=== PATIENT | male | born 1950 | race Two or more races ===

== ENCOUNTER 2022-03-14 21:54 | Inpatient (IN) | payer MEDICARE ==
[~2022-03-14] VITALS: Ht 193 cm; Wt 69.4 kg
--- NOTE | 2022-03-14 22:15 | NUR ---
GPS-ROLLER CHECKER NOTES: ADMITTED A 71-Y/O, MALE, FROM [facility]. ADMITTED ON A 5150 FOR GD. PER HOLD, PATIENT'S HOME WAS IN DISARRAY, AND HE WAS MALNOURISHED AND REFUSING FOOD AND MEDICATION. PT IS UNABLE TO CARE FOR HIMSELF. UPON FACE TO FACE EVALUATION, PT IS A/OX3, APPEARS DEPRESSED, ANXIOUS, HYPERVERBAL, PARANOID AND DELUSIONAL. PT STATED "I CAN'T STOP TALKING FOR OVER A YEAR". DENIES SI/HI/AVH AT THIS TIME. PATIENT REFUSED TO SIGN ALL ADMISSION PAPER WORKS. PT STATED "I HAVE SEVERE ANXIETY". SKIN ASSESSMENT DONE. WOUND CARE ORDERED. BELONGINGS WERE INVENTORIED AND CHECKED FOR CONTRABAND. PT IS UNDER THE PSYCHIATRIC CARE OF DR. YEUNG AND MEDICAL CARE OF [facility]. BED IN LOW LOCKED POSITION. SAFETY PRECAUTIONS MAINTAINED. WILL CONTINUE TO MONITOR Q15 MINS FOR MOOD, SAFETY AND BEHAVIOR. NO FAMILY TO NOTIFY REGARDING PT'S ADMISSION.
[2022-03-14 23:00] VITALS: BP 121/78
[2022-03-14] MEDS ORDERED: MAG HYDROX/AL HYDROX/SIMETH 30 ML UDC PO PRN (23:00)
[2022-03-14] MEDS ORDERED: LORAZEPAM 0.5 MG TABLET PO PRN (23:00)
[2022-03-14] MEDS ORDERED: BLOOD SUGAR DIAGNOSTIC 1 EACH STRIP IN ONE (23:00)
[2022-03-14] MEDS ORDERED: MAGNESIUM HYDROXIDE 30 ML UDC PO PRN (23:00)
[2022-03-14] MEDS ORDERED: TEMAZEPAM 7.5 MG CAPSULE PO PRN (23:00)
[2022-03-14] MEDS ORDERED: ACETAMINOPHEN 325 MG TABLET PO PRN (23:00)
[2022-03-15] MEDS ORDERED: APIX5TAB PO (00:01)
[2022-03-15] MEDS ORDERED: METO-357 PO (00:01)
[2022-03-15] MEDS ORDERED: CLON0.5T PO ×2 (03:49)
[2022-03-15] MEDS ORDERED: ESCI5TAB PO (03:49)
[2022-03-15] MEDS ORDERED: MELA5TAB PO (03:49)
[2022-03-15] MEDS ORDERED: BUPR-96 PO (03:49)
--- NOTE | 2022-03-15 07:20 | NUR ---
WOUND CARE CONSULT: PT PRESENTS WITH RT HIP ABRASION, LEFT HIP BLANCHABLE REDNESS AND RT BUTTOCK PINK/RED AREA, PRESENT ON ADMISSION. PT IS AMBULATORY AND CONTINENT AT THIS TIME. RECOMMENDATIONS MADE FOR SKIN PROTECTION AND WOUND CARE. DISCUSSED WITH NURSING STAFF. MD IN AGREEMENT WITH PLAN OF CARE.
[2022-03-15 07:30] LABS: CHOLESTEROL 188 mg/dL (<200); HDL CHOLESTEROL 39 mg/dL (40-60); LDL 132 mg/dL (0-99); TRIGLYCERIDES 85 mg/dL (30-150)
[2022-03-15 08:00] VITALS: BP 116/69
[2022-03-15 08:26] LABS: CREATININE 1.1 mg/dL (0.6-1.3)
[2022-03-15] MEDS: METOPROLOL SUCCINATE 50 MG TAB.SR.24H PO SCH (08:48)
[2022-03-15] MEDS: APIXABAN 5 MG TABLET PO SCH ×2 (08:49→21:42)
[2022-03-15] MEDS: NEOMY SULF/BACITRAC ZN/POLY 15 GM TUBE TP SCH (08:51)
--- NOTE | 2022-03-15 09:18 | NUR ---
ISAC Clinical Note: Pt placed on a 5150 hold for GD. Hold states that pt was not taking medications and was malnourished. Per hold, it states that pt resides at [address] [place] [id number]; ([phone]). However, pt was unable to identify this information. Pt stated that he is "homeless". SW attempted to contact Aime friend ([phone]) and number did not exist. SW attempted to contact next of kin Bisi ([phone]) and was unable to reach.
--- NOTE | 2022-03-15 09:18 | NUR ---
ISAC Initial Discharge: Per hold, it states that pt resides at [address] [place] [id number]; ([phone]). However, pt was unable to identify this information. Pt stated that he is "homeless". SW attempted to contact Aime friend ([phone]) and number did not exist. SW attempted to contact next of kin Bisi ([phone]) and was unable to reach. ISAC will work with the MD and pt to help coordinate appropriate discharge.
--- NOTE | 2022-03-15 09:20 | NUR ---
ISAC Family Contact: SW attempted to contact Aime friend ([phone]) and number did not exist. SW attempted to contact next of kin Bisi ([phone]) and was unable to reach and left a voicemail.
--- NOTE | 2022-03-15 09:22 | NUR ---
Treatment Plan: Pt refused to sign treatment plan and was paranoid.
[2022-03-15] MEDS: ESCITALOPRAM OXALATE (10 MG) 10 MG TABLET PO SCH (09:56)
[2022-03-15 16:00] VITALS: BP 103/51
[2022-03-15] MEDS: busPIRone 5 MG TABLET PO SCH (21:41)
[2022-03-15] MEDS: ATORVASTATIN 10 MG TABLET PO SCH (21:43)
--- NOTE | 2022-03-16 07:30 | NUR ---
GPS RN OPENING NOTES RECEIVED PATIENT RESTING IN BED, EASILY AWAKE TO STIMULI. AWAKE, A/O X1, ABLE TO VERBALIZED NEEDS. DENIES ANY PAIN AT THIS TIME.NO SIGNS OF SOB OR CARDIAC DISTRESS NOTED. PATIENT NOTED WITH EPISODES OF CONFUSIONS AND FORGETFULNESS. NEED FREQUENT REORIENTATION. SAFETY MEASURES MAINTAINED: BED IN LOWEST AND LOCKED POSITION, SIDE RAILS UP, WILL CONTINUE TO MONITOR FOR ANY CHANGES IN BEHAVIOR.
[2022-03-16 08:00] VITALS: BP 114/68
[2022-03-16] MEDS: ESCITALOPRAM OXALATE (10 MG) 10 MG TABLET PO SCH (08:19)
[2022-03-16] MEDS: METOPROLOL SUCCINATE 50 MG TAB.SR.24H PO SCH (08:19)
--- NOTE | 2022-03-16 08:19 | NUR ---
SNF Referral: SW sent clinicals to Nicholas anguiano from [facility] ([phone]) for placement option. SW sent H & P, progress notes, and medication list.
[2022-03-16] MEDS: APIXABAN 5 MG TABLET PO SCH ×2 (08:20→21:00)
[2022-03-16] MEDS ORDERED: clonazePAM 0.5 MG TABLET PO PRN (08:30)
--- NOTE | 2022-03-16 09:16 | NUR ---
SW Friend Contact: SW received a call from Bisi ([phone]) who stated that pt does not have any supportive contact. She stated that she is pt's [facility] friend. She shared pt has two friends only: Bisi and Aime. Bisi stated that pt does not have a condo at this time and his condo is up for rent. She reported that pt was residing at her mothers house and taking care of her mother. SW explained treatment/discharge plan and that the doctor recommends a nursing facility. She was agreeable of this.
--- NOTE | 2022-03-16 09:39 | NUR ---
SNF Contact: SW spoke with Nicholas anguiano from [facility] ([phone]) who stated pt is accepted.
[2022-03-16] MEDS: NEOMY SULF/BACITRAC ZN/POLY 15 GM TUBE TP SCH (10:31)
--- NOTE | 2022-03-16 14:24 | NUR ---
Friend Contact: ISAC received a call from patient's friend Aime ([phone]) who stated that he is the DPOA but then stated he is unsure if he is the DPOA. He shared information that his condo will be going in forecsure and would want to assist pt. ISAC did share that friend Bisi stated that pt was living at her mothers house (). ISAC did explain recommendation is for pt to go to a nursing facility. Addendum: 03/17/22 at 1301 by ISAC MCGHEE Aime did report that he will be going to vacation for two weeks and will be unable to help until back.
[2022-03-16 16:00] VITALS: BP 110/56
[2022-03-16] MEDS: clonazePAM 0.5 MG TABLET PO PRN (18:14)
--- NOTE | 2022-03-16 18:50 | NUR ---
GPS RN CLOSING NOTES: PATIENT IN BED ASLEEP IN BED, A/OX2. PATIENT REMAINED CALM IN THE SHIFT, NOTED WITH EPISODES OF ECHOLALIA.NO SOB OR CARDIAC DISTRESS NOTED, ON ROOM AIR AND TOLERATING WELL. SAFETY MEASURES MAINTAINED: BED LOCKED AND IN LOWEST POSITION, SIDE RAILS UP X 2. CALL LIGHT IN EASY REACH FOR ASSISTANCE. ENDORSED TO SEISMOGRAPH OBSERVER FOR DADA.
[2022-03-16 20:00] VITALS: BP 108/71
[2022-03-16] MEDS: ATORVASTATIN 10 MG TABLET PO SCH ×3 (21:34→21:47)
[2022-03-16] MEDS: busPIRone 5 MG TABLET PO SCH (21:34)
[2022-03-17 08:00] VITALS: BP 131/76
[2022-03-17] MEDS: ESCITALOPRAM OXALATE (10 MG) 10 MG TABLET PO SCH (08:40)
[2022-03-17] MEDS: METOPROLOL SUCCINATE 50 MG TAB.SR.24H PO SCH (08:41)
[2022-03-17] MEDS: APIXABAN 5 MG TABLET PO SCH ×2 (08:41→21:22)
[2022-03-17] MEDS: NEOMY SULF/BACITRAC ZN/POLY 15 GM TUBE TP SCH (08:47)
[2022-03-17] MEDS: clonazePAM 0.5 MG TABLET PO PRN ×2 (08:53→20:15)
--- NOTE | 2022-03-17 08:55 | NUR ---
RN-NOTES PATIENT C/O OF ANXIETY AND REQUESTING FOR MEDICATION, KLONOPIN 0.5MG P.O GIVEN PRN ORDER. WILL CONT. MONITORING FOR SAFETY AND BEHAVIOR.
--- NOTE | 2022-03-17 09:55 | NUR ---
RN-NOTES PATIENT LYING IN BED AWAKE,ALERT CALM,NO ACUTE DISTRESS NOTED.
--- NOTE | 2022-03-17 13:22 | NUR ---
Friend Contact: SW received a call from patient's friend Aime ([phone]) stating that he might be the DPOA and is continuing to look for the paperwork. He stated pt has an real estate broker associate who is trying to help to help pt with his condo situation.
[2022-03-17 16:00] VITALS: BP_SYST 100; BP_SYST 132; BP_DIAS 50; BP_DIAS 75
--- NOTE | 2022-03-17 20:22 | NUR ---
Pt awake , alert and oriented x 3 , currently laying in his bed. Pt requested for Klonopin 0.5 mg PRN for Anxiety- PRN given as ordered and per pt's request. Will cont to monitor and anticipate needs.
[2022-03-17 20:40] VITALS: BP 106/65
[2022-03-17] MEDS: ATORVASTATIN 10 MG TABLET PO SCH (21:23)
[2022-03-17] MEDS: busPIRone 5 MG TABLET PO SCH (21:23)
--- NOTE | 2022-03-17 23:53 | NUR ---
Pt sleeping at this time, no s/sx of acute distress noted, easy to arouse. Cont to monitor and anticipate needs and safety.
--- NOTE | 2022-03-18 07:00 | NUR ---
GPS RN OPENING NOTES PATIENT LAYING IN BED, A/O X 2, ANXIOUS, WITH NO COMPLAINTS OF PAIN OR DISCOMFORT. NO S/S RESPIRATORY DISTRESS. SAFETY MEASURES IN PLACE: BED IN LOWEST LOCKED POSITION, SIDE RAILS UP X 2, CALL LIGHT WITHIN REACH. WILL CONTINUE TO MONITOR.
[2022-03-18 08:00] VITALS: BP 120/60
[2022-03-18] MEDS: ESCITALOPRAM OXALATE (10 MG) 10 MG TABLET PO SCH (08:51)
[2022-03-18] MEDS: APIXABAN 5 MG TABLET PO SCH ×2 (08:54→16:18)
[2022-03-18] MEDS: NEOMY SULF/BACITRAC ZN/POLY 15 GM TUBE TP SCH (08:55)
[2022-03-18] MEDS: METOPROLOL SUCCINATE 50 MG TAB.SR.24H PO SCH (09:04)
[2022-03-18] MEDS: clonazePAM 0.5 MG TABLET PO PRN ×3 (09:12→17:45)
--- NOTE | 2022-03-18 09:12 | NUR ---
GPS RN NOTES PATIENT COMPLAINT OF ANXIETY AND REQUESTING MEDICATION. PRN CLONAZEPAM 0.5 MG TAB PO ADMINISTERED ORDERED. WILL CONTINUE TO MONITOR FOR S/S ANXIETY.
[2022-03-18 16:00] VITALS: BP 104/62
--- NOTE | 2022-03-18 17:49 | NUR ---
PATIENT COMPLAINT OF SEVERE ANXIETY AND REQUESTING MEDICATION. 0.5 MG CLONAZEPAM TAB PO ADMINISTERED ORDERED. WILL CONTINUE TO MONITOR FOR S/S OF ANXIETY.
[2022-03-18 20:26] VITALS: BP 123/73
--- NOTE | 2022-03-18 20:50 | NUR ---
RN NOTES: PATIENT RESTING HIS ROOM. NO S/SX OF ACUTE DISTRESS NOTED, EASILY AGITATED, DISORGANIZED,GUARDED NEEDS REDIRECTION. ENCOURAGED TO VERBALIZE ANY FEELING OR CONCERN AND ENCOURAGED TO PARTICIPATE IN THE GROUP ACTIVITIES,DENIES SI/HI AT THIS TIME. SAFETY MEASURES IN PLACE. WILL CONTINUE TO MONITOR Q15MIN ROUNDS FOR SAFETY AND BEHAVIOR.
[2022-03-18] MEDS: busPIRone 5 MG TABLET PO SCH (22:08)
[2022-03-18] MEDS: ATORVASTATIN 10 MG TABLET PO SCH (22:08)
[2022-03-19] MEDS: clonazePAM 0.5 MG TABLET PO PRN ×2 (07:26→18:06)
[2022-03-19 08:00] VITALS: BP 112/65
[2022-03-19] MEDS: ESCITALOPRAM OXALATE (10 MG) 10 MG TABLET PO SCH (08:28)
[2022-03-19] MEDS: METOPROLOL SUCCINATE 50 MG TAB.SR.24H PO SCH (08:28)
[2022-03-19] MEDS: APIXABAN 5 MG TABLET PO SCH ×2 (08:29→17:20)
[2022-03-19] MEDS: NEOMY SULF/BACITRAC ZN/POLY 15 GM TUBE TP SCH (08:57)
[2022-03-19 16:00] VITALS: BP 123/65
[2022-03-19 20:19] VITALS: BP 98/52
[2022-03-19] MEDS: busPIRone 5 MG TABLET PO SCH (21:06)
[2022-03-19] MEDS: ATORVASTATIN 10 MG TABLET PO SCH (21:07)
--- NOTE | 2022-03-20 00:42 | NUR ---
Pt skin assessment done.
[2022-03-20 08:00] VITALS: BP 100/58
[2022-03-20] MEDS: METOPROLOL SUCCINATE 50 MG TAB.SR.24H PO SCH (08:33)
[2022-03-20] MEDS: clonazePAM 0.5 MG TABLET PO PRN ×2 (08:33→20:54)
[2022-03-20] MEDS: ESCITALOPRAM OXALATE (10 MG) 10 MG TABLET PO SCH (08:33)
[2022-03-20] MEDS: APIXABAN 5 MG TABLET PO SCH ×2 (08:33→16:34)
[2022-03-20] MEDS: NEOMY SULF/BACITRAC ZN/POLY 15 GM TUBE TP SCH (08:35)
--- NOTE | 2022-03-20 09:00 | NUR ---
RN NOTE- PATIENT RESTING HIS ROOM. NO S/SX OF ACUTE DISTRESS NOTED, EASILY AGITATED, DISORGANIZED,GUARDED NEEDS REDIRECTION. ENCOURAGED TO VERBALIEZ ANY FEELING OR CONCERN AND ENCOURAGED TO PARTICIPATE IN THE GROUP ACTIVITIES,DENIES SI/HI AT THIS TIME. SAFETY MEASURES IN PLACE. WILL CONTINUE TO MONITOR Q15MIN ROUNDS FOR SAFETY AND BEHAVIOR.
[2022-03-20 16:00] VITALS: BP 123/73
[2022-03-20 20:50] VITALS: BP 105/58
[2022-03-20] MEDS: busPIRone 5 MG TABLET PO SCH (21:06)
[2022-03-20] MEDS: ATORVASTATIN 10 MG TABLET PO SCH (21:12)
[2022-03-21 08:00] VITALS: BP 109/59
[2022-03-21] MEDS: ESCITALOPRAM OXALATE (10 MG) 10 MG TABLET PO SCH (08:43)
[2022-03-21] MEDS: METOPROLOL SUCCINATE 50 MG TAB.SR.24H PO SCH (08:47)
[2022-03-21] MEDS: APIXABAN 5 MG TABLET PO SCH ×2 (08:48→17:35)
--- NOTE | 2022-03-21 08:48 | NUR ---
rn notes administered mom at this time for constipation per patient request . also administered prune juice. patient state "i do not has bowel movement 9 days". will follow up.
[2022-03-21] MEDS: NEOMY SULF/BACITRAC ZN/POLY 15 GM TUBE TP SCH (08:50)
[2022-03-21] MEDS ORDERED: clonazePAM 0.5 MG TABLET PO STA (09:15)
--- NOTE | 2022-03-21 09:23 | NUR ---
rn notes 0900 am call psychiatrist and get one time order of Klonopin 0.5 mg po x1. order taken and carried out. 0923 administered Klonopin 0.5 mg po prn for anxiety, bp 109/ 59, p-64. will follow up.
--- NOTE | 2022-03-21 15:30 | NUR ---
rn npotes get new order for neuropathy gabapentin 100 mg po tid . order taken and acarid out.
[2022-03-21 16:00] VITALS: BP 110/56
[2022-03-21] MEDS: GABAPENTIN 100 MG CAPSULE PO SCH (17:34)
[2022-03-21] MEDS: clonazePAM 0.5 MG TABLET PO PRN (18:00)
[2022-03-21 20:40] VITALS: BP 100/57
[2022-03-21] MEDS: ATORVASTATIN 10 MG TABLET PO SCH (21:00)
[2022-03-21] MEDS: busPIRone 5 MG TABLET PO SCH (21:03)
--- NOTE | 2022-03-22 05:28 | NUR ---
2054:Patient c/o feeling anxious,requested and given Klonopin0.5 mg PO with good results.
[2022-03-22 07:39] LABS: EOSINOPHILS % (AUTO) 4.6 % (0.0-6.0); HEMATOCRIT 36 % (39-51); HEMOGLOBIN 11.9 g/dL (13.5-17.5); LYMPHOCYTES # (AUTO) 1.2 K/uL (0.8-4.8); LYMPHOCYTES % (AUTO) 25.6 % (20.0-44.0); MEAN CORPUSCULAR HGB CONC 33 g/dl (31.0-36.0); MEAN CORPUSCULAR VOLUME 93 fL (80-96); MONOCYTES # (AUTO) 0.5 K/uL (0.1-1.30); NEUTROPHILS # (AUTO) 2.7 K/uL (1.8-8.9); NEUTROPHILS % (AUTO) 58.8 % (43.0-81.0); PLATELET COUNT (AUTO) 259 K/uL (150-450); RED BLOOD CELL COUNT(AUTO) 3.86 MIL/uL (4.5-6.0); WHITE BLOOD COUNT (AUTO) 4.6 K/uL (4.3-11.0)
[2022-03-22 08:00] VITALS: BP 106/57
[2022-03-22 08:17] LABS: CALCIUM, SERUM 8.8 mg/dL (8.5-10.1); CREATININE 0.9 mg/dL (0.6-1.3); POTASSIUM 4.3 mmol/L (3.5-5.1)
[2022-03-22] MEDS: APIXABAN 5 MG TABLET PO SCH ×3 (09:00→16:41)
[2022-03-22] MEDS: METOPROLOL SUCCINATE 50 MG TAB.SR.24H PO SCH (09:05)
[2022-03-22] MEDS: ESCITALOPRAM OXALATE (10 MG) 10 MG TABLET PO SCH (09:05)
[2022-03-22] MEDS: GABAPENTIN 100 MG CAPSULE PO SCH ×3 (09:06→16:41)
[2022-03-22] MEDS: NEOMY SULF/BACITRAC ZN/POLY 15 GM TUBE TP SCH (09:10)
[2022-03-22] MEDS: clonazePAM 0.5 MG TABLET PO PRN (09:37)
--- NOTE | 2022-03-22 09:37 | NUR ---
Patient c/o anxiety medicated with klonopin 0.5 mg po x1.
[2022-03-22 16:00] VITALS: BP 100/52
--- NOTE | 2022-03-22 19:15 | NUR ---
GPS RN NOTES RECEIVED PATIENT IN HIS BED RESTING COMFORTABLY. A/OX2, NO S/SX OF ACUTE DISTRESS NOTED. PATIENT REMAINS ANXIOUS, WITHDRAWN, GUARDED, PATIENT HAS NO INTERACTION WITH OTHER PATIENTS. VERBALIZATION OF FEELINGS ENCOURAGED. DENIED SI/HI AT THIS TIME. SAFETY PRECAUTIONS MAINTAINED. WILL CONTINUE TO MONITOR Q15MIN ROUNDS FOR SAFETY AND BEHAVIOR.
--- NOTE | 2022-03-22 19:16 | NUR ---
MAYRA HELD BY ,STOOL OB ORDERD .
[2022-03-22 20:00] VITALS: BP 97/70
[2022-03-22] MEDS: ATORVASTATIN 10 MG TABLET PO SCH (21:03)
[2022-03-22] MEDS: busPIRone 5 MG TABLET PO SCH (21:03)
[2022-03-23 07:30] LABS: BASOPHILS # (AUTO) 0.1 K/uL (0.0-0.2); BASOPHILS % (AUTO) 1.8 % (0.0-2.0); EOSINOPHILS % (AUTO) 4.6 % (0.0-6.0); HEMATOCRIT 36 % (39-51); HEMOGLOBIN 11.9 g/dL (13.5-17.5); LYMPHOCYTES # (AUTO) 1.3 K/uL (0.8-4.8); LYMPHOCYTES % (AUTO) 26.5 % (20.0-44.0); MEAN CORPUSCULAR HGB CONC 33 g/dl (31.0-36.0); MEAN CORPUSCULAR VOLUME 93 fL (80-96); MONOCYTES # (AUTO) 0.5 K/uL (0.1-1.30); MONOCYTES % (AUTO) 9.5 % (2.0-12.0); NEUTROPHILS # (AUTO) 2.8 K/uL (1.8-8.9); NEUTROPHILS % (AUTO) 57.6 % (43.0-81.0); PLATELET COUNT (AUTO) 257 K/uL (150-450); WHITE BLOOD COUNT (AUTO) 4.8 K/uL (4.3-11.0)
[2022-03-23] MEDS: clonazePAM 0.5 MG TABLET PO PRN (07:33)
--- NOTE | 2022-03-23 07:41 | NUR ---
RN NOTES PRN CLONOPIN 0.5 MG GIVEN AT 0733 AM FOR ANXIETY.
[2022-03-23 08:00] VITALS: BP 120/70
[2022-03-23] MEDS: GABAPENTIN 100 MG CAPSULE PO SCH ×3 (08:25→17:15)
[2022-03-23] MEDS: ESCITALOPRAM OXALATE (10 MG) 10 MG TABLET PO SCH (08:26)
[2022-03-23] MEDS: METOPROLOL SUCCINATE 50 MG TAB.SR.24H PO SCH (08:26)
[2022-03-23] MEDS: APIXABAN 5 MG TABLET PO SCH ×2 (08:27→17:16)
[2022-03-23] MEDS: NEOMY SULF/BACITRAC ZN/POLY 15 GM TUBE TP SCH (09:41)
--- NOTE | 2022-03-23 13:30 | NUR ---
RN NOTES FISHER ADOLPH GUZMAN VISITED THE PATIENT AND RESUMED THE ORDER FOR ELIQUIS 5 MG. ADOLPH GRANT STATED HEMOGLOBIN AND HEMATOCRIT IS OK SO WE CAN GIVE ELIQUIS 5 MG EVEN THE STOOL IS NOT COLLECTED YET.
[2022-03-23 16:00] VITALS: BP 111/66
[2022-03-23 20:00] VITALS: BP 103/65
--- NOTE | 2022-03-23 20:34 | NUR ---
RN NOTES: PATIENT RESTING HIS ROOM. NO S/SX OF ACUTE DISTRESS NOTED, EASILY AGITATED, DISORGANIZED,GUARDED , TALKING TO SELF ,NEEDS REDIRECTION. ENCOURAGED TO VERBALIZE ANY FEELING OR CONCERN AND ENCOURAGED TO PARTICIPATE IN THE GROUP ACTIVITIES,DENIES SI/HI AT THIS TIME. SAFETY MEASURES IN PLACE. WILL CONTINUE TO MONITOR Q15MIN ROUNDS FOR SAFETY AND BEHAVIOR.
[2022-03-23] MEDS: busPIRone 5 MG TABLET PO SCH (21:15)
[2022-03-23] MEDS: ATORVASTATIN 10 MG TABLET PO SCH (21:15)
[2022-03-24 06:50] LABS: BASOPHILS # (AUTO) 0.1 K/uL (0.0-0.2); EOSINOPHILS % (AUTO) 5.9 % (0.0-6.0); HEMATOCRIT 35 % (39-51); HEMOGLOBIN 11.9 g/dL (13.5-17.5); LYMPHOCYTES # (AUTO) 1.4 K/uL (0.8-4.8); LYMPHOCYTES % (AUTO) 27.5 % (20.0-44.0); MEAN CORPUSCULAR HGB CONC 34 g/dl (31.0-36.0); MEAN CORPUSCULAR VOLUME 92 fL (80-96); MONOCYTES # (AUTO) 0.5 K/uL (0.1-1.30); MONOCYTES % (AUTO) 10.9 % (2.0-12.0); NEUTROPHILS # (AUTO) 2.7 K/uL (1.8-8.9); NEUTROPHILS % (AUTO) 54.7 % (43.0-81.0); PLATELET COUNT (AUTO) 247 K/uL (150-450); RED BLOOD CELL COUNT(AUTO) 3.83 MIL/uL (4.5-6.0)
[2022-03-24 08:00] VITALS: BP 118/70
[2022-03-24] MEDS: GABAPENTIN 100 MG CAPSULE PO SCH ×3 (09:33→17:59)
[2022-03-24] MEDS: APIXABAN 5 MG TABLET PO SCH ×2 (09:33→17:59)
[2022-03-24] MEDS: busPIRone 5 MG TABLET PO SCH ×2 (09:33→17:59)
[2022-03-24] MEDS: ESCITALOPRAM OXALATE (10 MG) 10 MG TABLET PO SCH (09:33)
[2022-03-24] MEDS: NEOMY SULF/BACITRAC ZN/POLY 15 GM TUBE TP SCH (09:34)
[2022-03-24] MEDS: METOPROLOL SUCCINATE 50 MG TAB.SR.24H PO SCH (09:34)
[2022-03-24] MEDS: clonazePAM 0.5 MG TABLET PO PRN (09:43)
[2022-03-24 16:00] VITALS: BP 96/70
--- NOTE | 2022-03-24 16:01 | NUR ---
GPS RN NOTES STOOL SAMPLE COLLECTED AND LABELED. LAB CALLED AND MADE AWARE SAMPLE IS READY FOR PICKUP.
[2022-03-24 20:00] VITALS: BP 101/68
[2022-03-24 21:01] LABS: OCCULT BLOOD STOOL NEGATIVE (NEGATIVE)
[2022-03-24] MEDS: ATORVASTATIN 10 MG TABLET PO SCH (21:02)
[2022-03-25 06:33] LABS: BASOPHILS # (AUTO) 0.1 K/uL (0.0-0.2); BASOPHILS % (AUTO) 1.1 % (0.0-2.0); EOSINOPHILS % (AUTO) 6.4 % (0.0-6.0); HEMATOCRIT 34 % (39-51); HEMOGLOBIN 11.5 g/dL (13.5-17.5); LYMPHOCYTES # (AUTO) 1.4 K/uL (0.8-4.8); LYMPHOCYTES % (AUTO) 27.4 % (20.0-44.0); MEAN CORPUSCULAR HGB CONC 34 g/dl (31.0-36.0); MEAN CORPUSCULAR VOLUME 92 fL (80-96); MONOCYTES # (AUTO) 0.6 K/uL (0.1-1.30); NEUTROPHILS # (AUTO) 2.6 K/uL (1.8-8.9); NEUTROPHILS % (AUTO) 53.1 % (43.0-81.0); PLATELET COUNT (AUTO) 249 K/uL (150-450); RED BLOOD CELL COUNT(AUTO) 3.65 MIL/uL (4.5-6.0)
--- NOTE | 2022-03-25 07:50 | NUR ---
RN OPENING NOTES PATIENT AWAKE IN BED RESTING,A/O X 2 CONFUSED AT TIMES, ANXIOUS, NO S/S OF PAIN NOTED AT THIS TIME. ON ROOM AIR NO DISTRESS OR SHORTNESS OF BREATH NOTED. PATIENT IS COMPLIANT WITH MEDICATION AND COOPERATIVE. PATIENT DENIES SUICIDE IDEATIONS AND HOMICIDAL IDEATIONS AT THIS TIME. PATIENT EDUCATED ON THE USE OF THE CALL BARRY. FALL AND SAFETY MEASURES IN PLACE, BED ALARM ON, BED IN LOW LOCK POSITION, CALL LIGHT AND TABLE WITHIN EASY REACH, SIDE RAILS UP X2. WILL CONTINUE TO MONITOR Q15MIN. WITH THE HELP OF STAFF TO MAINTAIN SAFETY.
[2022-03-25 08:00] VITALS: BP 115/67
[2022-03-25] MEDS: GABAPENTIN 100 MG CAPSULE PO SCH ×3 (08:21→17:02)
[2022-03-25] MEDS: METOPROLOL SUCCINATE 50 MG TAB.SR.24H PO SCH (08:21)
[2022-03-25] MEDS: ESCITALOPRAM OXALATE (10 MG) 10 MG TABLET PO SCH (08:21)
[2022-03-25] MEDS: busPIRone 5 MG TABLET PO SCH ×2 (08:21→17:02)
[2022-03-25] MEDS: APIXABAN 5 MG TABLET PO SCH ×2 (08:22→17:03)
[2022-03-25] MEDS: NEOMY SULF/BACITRAC ZN/POLY 15 GM TUBE TP SCH ×2 (08:23→08:33)
[2022-03-25] MEDS: clonazePAM 0.5 MG TABLET PO PRN (12:07)
[2022-03-25 16:00] VITALS: BP 106/60
[2022-03-25 20:00] VITALS: BP 100/65
[2022-03-25 20:54] VITALS: BP 100/65
[2022-03-25] MEDS: ATORVASTATIN 10 MG TABLET PO SCH (21:27)
[2022-03-26] MEDS: clonazePAM 0.5 MG TABLET PO PRN ×2 (03:21→20:10)
--- NOTE | 2022-03-26 03:25 | NUR ---
RN NOTE: ANXIETY PATIENT IS EXTREMELY ANXIOUS, RESTLESS, UNABLE TO SLEEP, KEEPS REPEATING," THEY GAVE ME TOO MANY DRUGS, NOTHING WORKS FOR ME. I HAVE A PROCEDURE IN THE MORNING" PRN KLONOPIN 0.5 MG PO ADMINISTERED. WILL CONTINUE TO MONITOR THE PATIENT CLOSELY FOR ANY CHANGE OF CONDITION.
--- NOTE | 2022-03-26 04:25 | NUR ---
PATIENT IS SLEEPING COMFORTABLY AT THIS TIME AFTER KLONOPIN WAS GIVEN.
[2022-03-26 07:30] LABS: BASOPHILS # (AUTO) 0.1 K/uL (0.0-0.2); BASOPHILS % (AUTO) 1.1 % (0.0-2.0); EOSINOPHILS % (AUTO) 5.5 % (0.0-6.0); HEMATOCRIT 36 % (39-51); HEMOGLOBIN 11.9 g/dL (13.5-17.5); LYMPHOCYTES # (AUTO) 1.4 K/uL (0.8-4.8); LYMPHOCYTES % (AUTO) 26.4 % (20.0-44.0); MEAN CORPUSCULAR HGB CONC 33 g/dl (31.0-36.0); MEAN CORPUSCULAR VOLUME 92 fL (80-96); MONOCYTES # (AUTO) 0.6 K/uL (0.1-1.30); MONOCYTES % (AUTO) 10.8 % (2.0-12.0); NEUTROPHILS % (AUTO) 56.2 % (43.0-81.0); PLATELET COUNT (AUTO) 279 K/uL (150-450); RED BLOOD CELL COUNT(AUTO) 3.88 MIL/uL (4.5-6.0); WHITE BLOOD COUNT (AUTO) 5.3 K/uL (4.3-11.0)
[2022-03-26 08:00] VITALS: BP 113/68
[2022-03-26] MEDS: busPIRone 5 MG TABLET PO SCH ×2 (09:05→18:04)
[2022-03-26] MEDS: APIXABAN 5 MG TABLET PO SCH ×2 (09:06→18:05)
[2022-03-26] MEDS: GABAPENTIN 100 MG CAPSULE PO SCH ×3 (09:06→18:04)
[2022-03-26] MEDS: ESCITALOPRAM OXALATE (10 MG) 10 MG TABLET PO SCH (09:06)
[2022-03-26] MEDS: METOPROLOL SUCCINATE 50 MG TAB.SR.24H PO SCH (09:07)
[2022-03-26] MEDS: NEOMY SULF/BACITRAC ZN/POLY 15 GM TUBE TP SCH (09:14)
[2022-03-26 16:00] VITALS: BP 120/64
[2022-03-26 20:05] VITALS: BP 104/64
--- NOTE | 2022-03-26 20:15 | NUR ---
RN NOTE: ANXIETY PATIENT VERBALIZED FEELING VERY ANXIOUS, RESTLESS, HANDS SHAKING, KEEPS REPOSITIONING IN BED FREQUENTLY. KLONOPIN 0.5 MG PO ADMINISTERED PER MD ORDER.
[2022-03-26 20:33] VITALS: BP 104/64
[2022-03-26] MEDS: ATORVASTATIN 10 MG TABLET PO SCH (21:23)
[2022-03-27 08:00] VITALS: BP 109/69
[2022-03-27] MEDS: APIXABAN 5 MG TABLET PO SCH ×2 (08:02→16:05)
[2022-03-27] MEDS: busPIRone 5 MG TABLET PO SCH ×2 (08:02→16:04)
[2022-03-27] MEDS: ESCITALOPRAM OXALATE (10 MG) 10 MG TABLET PO SCH (08:02)
[2022-03-27] MEDS: clonazePAM 0.5 MG TABLET PO PRN ×2 (08:02→16:04)
[2022-03-27] MEDS: GABAPENTIN 100 MG CAPSULE PO SCH ×3 (08:02→16:04)
[2022-03-27] MEDS: METOPROLOL SUCCINATE 50 MG TAB.SR.24H PO SCH (08:52)
[2022-03-27] MEDS: NEOMY SULF/BACITRAC ZN/POLY 15 GM TUBE TP SCH (09:00)
--- NOTE | 2022-03-27 09:52 | NUR ---
RN-CO: RECEIVED PATIENT VERY ANXIOUS, DELUSIONAL AND HE BELIEVES THAT SOME MEDICATIONS WILL HARM HIM. HE REFUSED TO SHOWER THIS MORNING.UNMOTIVATED TO SELF CARE. I WILL CONTINUE TO MONITOR AND KEEP HIM SAFE.
[2022-03-27 16:00] VITALS: BP 117/77
--- NOTE | 2022-03-27 16:05 | NUR ---
RN-CO: KLONOPIN 0.5 MG PO GIVEN FOR C/O ANXIETY.
[2022-03-27 20:49] VITALS: BP 115/67
[2022-03-27] MEDS: ATORVASTATIN 10 MG TABLET PO SCH (21:03)
[2022-03-28 08:00] VITALS: BP 103/74
[2022-03-28] MEDS: ESCITALOPRAM OXALATE (10 MG) 10 MG TABLET PO SCH (09:25)
[2022-03-28] MEDS: GABAPENTIN 100 MG CAPSULE PO SCH ×3 (09:25→17:43)
[2022-03-28] MEDS: busPIRone 5 MG TABLET PO SCH ×2 (09:25→17:44)
[2022-03-28] MEDS: APIXABAN 5 MG TABLET PO SCH ×2 (09:28→17:43)
[2022-03-28] MEDS: METOPROLOL SUCCINATE 50 MG TAB.SR.24H PO SCH (09:34)
[2022-03-28] MEDS: NEOMY SULF/BACITRAC ZN/POLY 15 GM TUBE TP SCH (09:35)
[2022-03-28 16:00] VITALS: BP_SYST 125; BP_SYST 144; BP_DIAS 55; BP_DIAS 74
--- NOTE | 2022-03-28 19:30 | NUR ---
GPS RN OPENING NOTES: RECEIVED PATIENT LAYING IN BED, AWAKE, A/O X2. FLAT AFFECT, ANXIOUS, RESTLESS, DISORGANIZED, DISORIENTED. LOOSE ASSOCIATIONS. PATIENT HAS NO S/S OF DISTRESS. RESPIRATION EVEN AND UNLABORED WITH EQUAL RISE AND FALL OF THE CHEST, ON ROOM AIR. WILL CONTINUE TO MONITOR Q15 FOR MOOD, SAFETY AND BEHAVIOR.
[2022-03-28 20:05] VITALS: BP 124/72
[2022-03-28] MEDS: ATORVASTATIN 10 MG TABLET PO SCH (22:32)
--- NOTE | 2022-03-29 07:12 | NUR ---
GPS RN NOTES RECEIVED PT RESTING IN BED, NO S/S OF SOB OR DISTRESS NOTED. PATIENT A/Ox3, ABLE TO MAKE NEEDS KNOWN. WILL ENCOURAGE VERBALIZATION OF FEELINGS. PATIENT STAYS IN ROOM AND PREFERS TO HAVE DOOR ALMOST CLOSED, WILL CONTINUE TO CHECK ON PT. SAFETY PRECAUTIONS MAINTAINED. WILL CONTINUE TO MONITOR THROUGHOUT SHIFT.
--- NOTE | 2022-03-29 07:43 | NUR ---
SW Discharge Note: [facility] [address] [place] [address]; . Please arrange Ambulance transportation. Federal Judge spoke with Nicholas, [employer]cer at [facility]; ([phone]), who stated patient will be accepted at facility today. Patient is alert and oriented x2 and is not able to plan for self-care at this time but is willing to accept care provided at the facility. Patient denies any suicidal or homicidal ideations. Patient is aware and agreeable with discharge plans. Patients friend Bisi ([phone]) is aware. Patient will continue to follow-up with her (Psychiatrist) [place]. [place] [address] [place] [address]; ([phone]) and ([facility]) Dr. Gomez at [address] [facility] [address], [place] [address]; ([phone]).
[2022-03-29 08:00] VITALS: BP 119/76
[2022-03-29] MEDS: APIXABAN 5 MG TABLET PO SCH (09:01)
[2022-03-29] MEDS: ESCITALOPRAM OXALATE (10 MG) 10 MG TABLET PO SCH (09:02)
[2022-03-29] MEDS: GABAPENTIN 100 MG CAPSULE PO SCH (09:02)
[2022-03-29] MEDS: busPIRone 5 MG TABLET PO SCH (09:02)
[2022-03-29 09:03] VITALS: BP 119/76
[2022-03-29] MEDS: METOPROLOL SUCCINATE 50 MG TAB.SR.24H PO SCH (09:03)
[2022-03-29] MEDS: NEOMY SULF/BACITRAC ZN/POLY 15 GM TUBE TP SCH (09:03)
[2022-03-29] MEDS: clonazePAM 0.5 MG TABLET PO PRN (09:21)
--- NOTE | 2022-03-29 09:31 | NUR ---
RN NOTES PATIENT EXPRESSED ANXIETY AND REQUESTED KLONOPIN, PRN GIVEN, WILL CONTINUE TO MONITOR.
--- NOTE | 2022-03-29 14:09 | NUR ---
BAKERY ASSISTANT NOTES PATIENT DISCHARGED TO [facility], STABLE A/Ox2. ANXIOUS AND RESTLESS. PATIENT IS UNABLE TO CARE FOR SELF AND WILLING TO GO TO SNF FOR CARE. PATIENT DENIES ANY SUICIDAL OR HOMICIDAL IDEATIONS. ALL MORNING MEDICATION ADMINISTERED. WOUND TREATMENT DONE, NEOMYCIN ADMINISTERED TO R HIP ABRASION. PATIENT'S BEHAVIOR IS GUARDED AND ISOLATED, STAYS IN HIS ROOM. PATIENT REFUSED TO HAVE PHOTOS TAKEN. REPORT GIVEN TO CHERRY MCGARRY AT [facility]. ALL DISCHARGE INSTRUCTIONS AND MEDICATION LISTS GIVEN TO TRANSPORTATION. PATIENT LEFT UNIT @1112, CHARGE NURSE AND MD AWARE.
== END 2022-03-29 14:08 | DRG 885 ==
LOC: GPS 21:54
PROVIDERS: ADMIT Nurse Practitioner Psychiatric/Mental Health
DX: F33.2 Major depressive disorder, recurrent severe without psychotic features (principal); F13.239 Sedative, hypnotic or anxiolytic dependence with withdrawal, unspecified; I10 Essential (primary) hypertension; I48.0 Paroxysmal atrial fibrillation; F41.9 Anxiety disorder, unspecified; Z73.6 Limitation of activities due to disability; Z91.19 Patient's noncompliance with other medical treatment and regimen; E78.5 Hyperlipidemia, unspecified; Z79.01 Long term (current) use of anticoagulants; Z79.899 Other long term (current) drug therapy; Z86.711 Personal history of pulmonary embolism
CPT/HCPCS: 36415; 80048-TC; 80061-TC; 82272-TC; 82565-TC; 85025-TC; 87081-TC; 97116-TC; 97530-TC